=== PATIENT | male | born 2000 | race African-American/Black ===

== ENCOUNTER 2019-04-07 11:31 | Emergency (ER) | payer MEDICAID ==
[~2019-04-07] VITALS: Ht 193 cm; Wt 81.6 kg
[2019-04-07 13:42] VITALS: BP 119/73
== END 2019-04-07 14:05 | disposition home or self-care (01) ==
LOC: ER 11:31
DX: L02.31 Cutaneous abscess of buttock (principal)

== ENCOUNTER 2022-06-22 06:55 | Emergency (ER) | payer MEDICAID, OTHER ==
[~2022-06-22] VITALS: Ht 193 cm; Wt 100.7 kg
[2022-06-22 07:32] VITALS: BP 125/80
[2022-06-22] MEDS ORDERED: KETOROLAC TROMETH 60MG/2ML VIAL IM ONE (08:15)
[2022-06-22 08:48] LABS: Urine Bacteria NONE SEEN /hpf (None Seen); Urine Blood Negative /uL (Negative); Urine Mucus FEW (None Seen); Urine Specific Gravity 1.023 (1.001-1.035); Urine WBC 1 /hpf (0 - 3)
[2022-06-22] MEDS ORDERED: IBUP800T26 PO (09:02)
[2022-06-22] MEDS ORDERED: HYDR-4902 PO (09:02)
== END 2022-06-22 09:20 | disposition home or self-care (01) ==
LOC: ER 06:55
DX: S39.012A Strain of muscle, fascia and tendon of lower back, initial encounter (principal); X50.0XXA Overexertion from strenuous movement or load, initial encounter; Y93.89 Activity, other specified; Y92.89 Other specified places as the place of occurrence of the external cause; Y99.8 Other external cause status
CPT/HCPCS: 72100; 81001; 96372; 99284; J1885